=== PATIENT | male | born 1985 | race Two or more races ===

== ENCOUNTER 2024-11-10 06:15 | Day surgery (SDC) | payer OTHER ==
[2024-10-29 13:28] LABS: Basophils # (auto) 0.1 10 ^3/uL (0-0.2); Basophils % (auto) 1.2 % (0.0-2.0); Eosinophils # (auto) 0.1 10 ^3/uL (0-0.8); Eosinophils % (auto) 0.8 % (0.0-7.0); Hematocrit 46.9 % (41.0-53.0); Hemoglobin 16.1 g/dL (13.5-17.5); INR 1.03 (0.9-1.15); Lymphocytes # (auto) 1.6 10 ^3/uL (0.4-5.4); Lymphocytes % (auto) 23.7 % (10.0-50.0); Mean Corpuscular Hemoglobin 30.2 pg (28.0-32.0); Mean Corpuscular Hgb Conc. 34.5 g/dL (32.0-36.0); Mean Corpuscular Volume 87.5 fL (80.0-100.0); Monocytes # (auto) 0.5 10 ^3/uL (0-1.3); Neutrophils # (auto) 4.6 10 ^3/uL (1.6-8.6); Neutrophils % (auto) 67.3 % (37.0-80.0); Nucleated Red Blood Cells % 0.2 %; Partial Thromboplastin Time 26.4 SEC (24.5-34.5); Platelet Count (auto) 357 10^3/uL (140-450); Prothrombin Time 10.9 sec (9.3-11.8); Red Blood Cells 5.35 10^6/uL (4.5-5.90); Red Cell Distribution Width 13.4 % (11.8-14.3); White Blood Cell 6.8 10^3/uL (4.4-10.8)
[2024-10-29 13:46] LABS: Alanine Aminotransferase 32 U/L (7-40); Anion Gap 9 (5-15); Aspartate Aminotransferase 25 U/L (13-40); BUN/Creatinine Ratio 11.5 (10.0-20.0); Blood Urea Nitrogen 12 mg/dL (9-23); Calcium 10.3 mg/dL (8.7-10.4); Carbon Dioxide 29 mmol/L (20-31); Chloride 103 mmol/L (98-107); Glucose 91 mg/dL (74-106); Potassium 4.1 mmol/L (3.5-5.1); Sodium 141 mmol/L (136-145); Total Protein 7.9 g/dL (5.7-8.2)
[2024-10-29 13:47] LABS: Bilirubin, Total 0.7 mg/dL (0.2-1.0)
[2024-10-29 13:48] LABS: Alkaline Phosphatase 122 U/L (46-116)
[~2024-11-10] VITALS: Ht 172.7 cm; Wt 80.7 kg
[~2024-11-10 06:15] MED LIST: LISI20TA56 PO; OMEP20TA PO; PANT40T PO
[2024-11-10] MEDS: ACETAMINOPHEN IV 100 ML IV ONE (07:00)
[2024-11-10] MEDS ORDERED: GABAPENTIN 300 MG CAP ONE (07:01)
[2024-11-10] MEDS ORDERED: CELECOXIB 100 MG CAP ONE (07:01)
[2024-11-10] MEDS: GABAPENTIN 300 MG CAP PO ONE (07:02)
[2024-11-10] MEDS: CELECOXIB 100 MG CAP PO ONE (07:03)
[2024-11-10] MEDS: ACETAMINOPHEN IV 1000 MG/100ML (10MG/ML) IV ONE (07:03)
[2024-11-10] MEDS ORDERED: DexAMETHasone SOD PHOS 10MG/1ML VIAL INJ ONE ×2 (07:08→07:09)
[2024-11-10] MEDS ORDERED: KETAMINE 50mg/ML 1ml syringe ONE (07:08)
[2024-11-10] MEDS ORDERED: LIDOCAINE 1% INJ PF 5ML AMP ONE ×2 (07:08→07:09)
[2024-11-10] MEDS ORDERED: ONDANSETRON HCL 4 MG/2 ML VIAL ONE (07:08)
[2024-11-10] MEDS ORDERED: GLYCOPYRROLATE 0.2 MG/ML 1ML VIAL ONE (07:08)
[2024-11-10] MEDS ORDERED: PROPOFOL 10 MG/ML 20 ML IV ONE (07:08)
[2024-11-10] MEDS ORDERED: KETOROLAC TROMETH 30 MG/ML 1ML VIAL ONE (07:08)
[2024-11-10] MEDS ORDERED: EPINEPHrine HCL 1 MG/1 ML AMP ONE (07:09)
[2024-11-10] MEDS: ceFAZolin 2 GM/D5W50ml 50 ML IV ONE (07:19)
[2024-11-10 07:34] VITALS: RESP 11; TEMP 97.8; O2SAT 95
[2024-11-10] MEDS ORDERED: hydrALAZINE HCL 20 MG/ML VL IV PRN (07:45)
[2024-11-10] MEDS ORDERED: HYDROmorphone HCL 2 MG/ML VL/or syr IV PRN (07:45)
[2024-11-10] MEDS ORDERED: oxyCODONE HCL 5MG TAB PO PRN (07:45)
[2024-11-10] MEDS ORDERED: ePHEDrine SULFATE 50 MG/ML AMP IV PRN (07:45)
[2024-11-10] MEDS ORDERED: FLUMAZENIL 0.1 MG/ML INJ 10ML MDV IV PRN (07:45)
[2024-11-10] MEDS ORDERED: NALOXONE HCL 0.4 MG/ML VIAL IV PRN (07:45)
[2024-11-10] MEDS ORDERED: ONDANSETRON HCL 4 MG/2 ML VIAL IV PRN (07:45)
[2024-11-10] MEDS ORDERED: fentaNYL CITRATE 100 MCG/2 ML VL IV PRN (07:45)
[2024-11-10 07:55] VITALS: BP 101/60; PULSE 57; RESP 17; O2SAT 94
--- NOTE | 2024-11-10 08:47 | DVHOP2 ---
Operative Report - 2 Report Details Date: 11/10/24 Preop Diagnosis: Left shoulder adhesive capsulitis Postop Diagnosis: left shoulder adhesive capsulitis Surgeon: Elder Magaña MD Anesthesiologist: Solis Yang CRNA Anesthesia: Mac, Regional Consent: The patient was informed of the risks and benefits of the procedure. These include but are not limited to complications of anesthesia, postoperative infection, incomplete relief of symptoms, recurrence of symptoms, damage to blood vessels, nerves and tendons, deep venous thrombosis, pulmonary embolism and possible need for repeat surgery in the future. Complications: None Estimated Blood Loss: None Fluids: See anesthesia record Findings: Patient had markedly restricted range of motion with 90 abduction 80 flexion and 0 external rotation preop. Post manipulation he had 170 flexion 160 abduction and 40 external rotation. There was no evidence of instability. There was audible tearing during the procedure. Indications for Surgery: Left shoulder adhesive capsulitis with failed physical therapy. Name of Procedure Performed Manipulation under anesthesia of left shoulder Procedure Details Procedure Details: Patient was brought to the operating room and left on the gurney. Preop surgical time-out was performed verifying patient laterality and procedure. Patient was given conscious sedation as well as left shoulder block. Examination anesthesia performed with findings noted above. I then 1st did external rotation and flexion with audible tearing and in this way I was able to achieve the findings as noted above. Patient tolerated the procedure well was brought to recovery room in stable condition. Condition Stable Disposition Home ELDER MAGAÑA MD November 10, 2024 08:47
== END 2024-11-10 08:05 | disposition home or self-care (01) ==
LOC: SUR 06:15
PROVIDERS: ATTEND Orthopaedic Surgery
DX: M75.02 Adhesive capsulitis of left shoulder (principal); E66.3 Overweight; I10 Essential (primary) hypertension; Z68.27 Body mass index [BMI] 27.0-27.9, adult; Z87.891 Personal history of nicotine dependence; Z79.899 Other long term (current) drug therapy
CPT/HCPCS: 23700; 36415; 80053; 85025; 85610; 85730; J0171; J0690; J1100; J1885; J2405; J2704; J0131

== ENCOUNTER 2024-12-22 06:11 | Day surgery (SDC) | payer OTHER ==
[2024-12-16 11:00] LABS: Hematocrit 45.5 % (41.0-53.0); Hemoglobin 15.7 g/dL (13.5-17.5); Mean Corpuscular Hemoglobin 30.0 pg (28.0-32.0); Mean Corpuscular Volume 87.0 fL (80.0-100.0); Nucleated Red Blood Cells % 0.1 %
[2024-12-16 11:02] LABS: Urine Protein, UAD Negative (Negative)
[2024-12-16 11:14] LABS: INR 1.05 (0.9-1.15); Partial Thromboplastin Time 26.6 SEC (24.5-34.5); Prothrombin Time 11.1 sec (9.3-11.8)
[2024-12-16 11:28] LABS: Alanine Aminotransferase 33 U/L (7-40); Albumin 4.6 g/dL (3.2-4.8); Alkaline Phosphatase 97 U/L (46-116); Anion Gap 7 (5-15); BUN/Creatinine Ratio 12.9 (10.0-20.0); Blood Urea Nitrogen 12 mg/dL (9-23); Calcium 10.0 mg/dL (8.7-10.4); Carbon Dioxide 29 mmol/L (20-31); Chloride 107 mmol/L (98-107); Glucose 87 mg/dL (74-106); Potassium 4.6 mmol/L (3.5-5.1); Sodium 143 mmol/L (136-145); Total Protein 7.1 g/dL (5.7-8.2)
[2024-12-16 11:29] LABS: Bilirubin, Total 0.9 mg/dL (0.2-1.0)
[~2024-12-22] VITALS: Ht 172.7 cm; Wt 80.7 kg
[2024-12-22] MEDS ORDERED: ROPIVACAINE 0.5% (5MG/ML) 20ML AMPULE IJ ONE (07:07)
[2024-12-22] MEDS ORDERED: hydrALAZINE HCL 20 MG/ML VL IV PRN (07:15)
[2024-12-22] MEDS ORDERED: ONDANSETRON HCL 4 MG/2 ML VIAL IV ONE (07:15)
[2024-12-22] MEDS ORDERED: METOCLOPRAMIDE HCL 5MG/ml INJ 2ml VIAL IV ONE (07:15)
[2024-12-22] MEDS ORDERED: HYDROmorphone HCL 2 MG/ML VL/or syr IV PRN (07:15)
[2024-12-22] MEDS ORDERED: fentaNYL CITRATE 100 MCG/2 ML VL ONE (07:19)
[2024-12-22] MEDS ORDERED: MIDAZOLAM HCL 2MG/2ML 2ml VIAL (1mg/ml) ONE (07:20)
[2024-12-22] MEDS ORDERED: LIDOCAINE 2% (LOCAL ANESTH.) PF 5ml SDV ONE (07:20)
[2024-12-22] MEDS ORDERED: ONDANSETRON HCL 4 MG/2 ML VIAL ONE (07:20)
[2024-12-22] MEDS ORDERED: PROPOFOL 10 MG/ML 20 ML IV ONE (07:20)
[2024-12-22] MEDS ORDERED: METOCLOPRAMIDE HCL 5MG/ml INJ 2ml VIAL ONE (07:20)
[2024-12-22] MEDS ORDERED: LIDOCAINE W/ EPINEPHRINE 1% 20ML VIAL ONE (07:22)
[2024-12-22] MEDS ORDERED: BUPIVACAINE 0.25% INJ 50ML VIAL ONE (07:23)
[2024-12-22] MEDS: ceFAZolin 2 GM/D5W50ml 50 ML IV ONE (07:35)
[2024-12-22] MEDS: TRANEXAMIC ACID 20 ML ONE (07:40)
[2024-12-22 07:56] VITALS: PULSE 12; RESP 12; TEMP 97.1; O2SAT 96
--- NOTE | 2024-12-22 08:21 | DVHOP2 ---
Operative Report - 2 Report Details Date: 12/22/24 Preop Diagnosis: Right shoulder adhesive capsulitis Postop Diagnosis: Right shoulder adhesive capsulitis Surgeon: Elder Calabrese MD Anesthesiologist: Victorino pal Anesthesia: General, Regional Consent: The patient was informed of the risks and benefits of the procedure. These include but are not limited to complications of anesthesia, postoperative infection, incomplete relief of symptoms, recurrence of symptoms, damage to blood vessels, nerves and tendons, deep venous thrombosis, pulmonary embolism and possible need for repeat surgery in the future. Complications: None Estimated Blood Loss: None Fluids: See anesthesia record Findings: Severe restriction in range of motion right shoulder with less than 0 external rotation and less than 90 flexion Indications for Surgery: Right shoulder adhesive capsulitis and failed physical therapy Name of Procedure Performed Right shoulder manipulation under anesthesia Procedure Details Procedure Details: Patient was brought to the operating room given general anesthetic and left on the gurney. Surgical time-out performed verifying patient, laterality and procedure. I 1st performed external rotation getting from 0-40 degrees with audible tearing I was then able to flex to 160 again with audible tearing he had full 90 external rotation in abduction as well as 80 internal rotation in abduction. Patient tolerated the procedure well was brought to recovery room in stable condition Condition Stable Disposition Home ELDER CALABRESE MD Dec 22, 2024 08:20
[2024-12-22 08:45] VITALS: BP 90/56; PULSE 61; RESP 21; O2SAT 94
== END 2024-12-22 08:55 | disposition home or self-care (01) ==
LOC: SUR 06:11
PROVIDERS: ATTEND Orthopaedic Surgery
DX: M75.01 Adhesive capsulitis of right shoulder (principal)
CPT/HCPCS: 23700; 36415; 80053; 81001; 85025; 85610; 85730; J0690; J1100; J2003; J2250; J2405; J2704; J2765; J3010; J3490